=== PATIENT | female | born 1950 | race Caucasian/White ===

== ENCOUNTER 2018-06-07 20:32 | Observation (INO) | payer MEDICARE, OTHER ==
[~2018-06-07] VITALS: Ht 162.6 cm; Wt 89.7 kg
[~2018-06-07 20:32] MED LIST: CARV25 PO; CHOL10002; LANS15EC PO; Multivitamin1 EAC1 PO
[2018-06-07 22:44] LABS: BASOPHILS ABSOLUTE AUTO 0.03 K/mm3 (0.00-0.23); BASOPHILS PERCENT AUTO 0 % (0-2); EOSINOPHILS ABSOLUTE AUTO 0.08 K/mm3 (0.00-0.68); EOSINOPHILS PERCENT AUTO 1 % (0-6); Hematocrit 42.8 % (33.0-51.0); IMMATURE GRAN ABSOLUTE AUTO 0.02 K/mm3 (0.00-0.10); IMMATURE GRAN PERCENT AUTO 0 % (0-1); LYMPHOCYTES ABSOLUTE AUTO 1.23 K/mm3 (0.84-5.20); LYMPHOCYTES PERCENT AUTO 17 % (21-46); MONOCYTES ABSOLUTE AUTO 0.44 K/mm3 (0.16-1.47); MONOCYTES PERCENT AUTO 6 % (4-13); Mean Corpuscular HGB 31.3 pg (26.0-34.0); Mean Corpuscular HGB Conc 32.7 g/dL (31.5-36.5); Mean Corpuscular Volume 96 fL (80-100); Mean Platelet Volume 9.2 fL (9.1-12.4); NEUTROPHILS ABSOLUTE AUTO 5.46 K/mm3 (1.96-9.15); NEUTROPHILS PERCENT AUTO 75 % (41-73); Platelet Count 332 K/mm3 (150-400); RDW Coefficient Variation 12.9 % (11.7-14.2); RDW Standard Deviation 45.8 fL (35.1-46.3); Red Blood Cell Count 4.48 M/mm3 (3.80-5.20); White Blood Cell Count 7.26 K/mm3 (4.00-11.30)
[2018-06-07 22:48] LABS: Alanine Aminotransfer (ALT/SGP 26 U/L (12-78); Albumin, Blood 4.7 g/dL (3.4-5.0); Albumin/Globulin Ratio 1.3 (0.8-1.8); Alk Phos 73 U/L (50-136); Anion Gap 10 mmol/L (6-16); Aspartate Aminotrans (AST/SGOT 22 U/L (12-37); Bilirubin, Total 0.5 mg/dL (0.1-1.0); Blood Urea Nitrogen 13 mg/dL (8-24); Bun/Creatinine Ratio 17.8 (12.0-20.0); CO2, Blood 26 mmol/L (21-32); Calcium, Blood 9.3 mg/dL (8.5-10.1); Chloride, Blood 106 mmol/L (98-108); Creatinine, Blood 0.73 mg/dL (0.40-1.00); Globulin, Blood 3.5 g/dL (2.2-4.0); Glomerular Filtration Rate >60 (60-); Glucose, Blood 105 mg/dL (70-99); Potassium, Blood 3.5 mmol/L (3.5-5.5); Sodium, Blood 142 mmol/L (136-145); Total Protein, Blood 8.2 g/dL (6.4-8.2)
[2018-06-08] MEDS ORDERED: ESOM20 PO (00:07)
[2018-06-08] MEDS ORDERED: LOSA50 PO (00:07)
[2018-06-08] MEDS ORDERED: CLEM1.34 (00:07)
[2018-06-09 05:48] LABS: Mean Corpuscular HGB 30.7 pg (26.0-34.0); Mean Corpuscular HGB Conc 32.4 g/dL (31.5-36.5); Mean Corpuscular Volume 95 fL (80-100); Mean Platelet Volume 9.6 fL (9.1-12.4); Platelet Count 309 K/mm3 (150-400); RDW Coefficient Variation 13.3 % (11.7-14.2); RDW Standard Deviation 46.1 fL (35.1-46.3); Red Blood Cell Count 3.91 M/mm3 (3.80-5.20); White Blood Cell Count 8.48 K/mm3 (4.00-11.30)
[2018-06-09 06:09] LABS: Alanine Aminotransfer (ALT/SGP 24 U/L (12-78); Albumin, Blood 3.7 g/dL (3.4-5.0); Albumin/Globulin Ratio 1.2 (0.8-1.8); Alk Phos 58 U/L (50-136); Anion Gap 9 mmol/L (6-16); Aspartate Aminotrans (AST/SGOT 16 U/L (12-37); Bilirubin, Total 0.5 mg/dL (0.1-1.0); Blood Urea Nitrogen 21 mg/dL (8-24); Bun/Creatinine Ratio 23.3 (12.0-20.0); CO2, Blood 26 mmol/L (21-32); Calcium, Blood 8.4 mg/dL (8.5-10.1); Chloride, Blood 103 mmol/L (98-108); Globulin, Blood 3.1 g/dL (2.2-4.0); Glomerular Filtration Rate >60 (60-); Glucose, Blood 114 mg/dL (70-99); Potassium, Blood 3.3 mmol/L (3.5-5.5); Sodium, Blood 138 mmol/L (136-145); Total Protein, Blood 6.8 g/dL (6.4-8.2)
[2018-06-10] MEDS ORDERED: ATOR40TA PO (08:24)
[2018-06-10] MEDS ORDERED: AMLO5 PO (09:50)
[2018-06-10] MEDS ORDERED: BENZ100A PO (09:51)
[2018-06-10] MEDS ORDERED: Esgic Tablet1 EACH PO (09:52)
[2018-06-10] MEDS ORDERED: HYDCHL12.5 PO (09:52)
[2018-06-10] MEDS ORDERED: Micro-K10 MEQ PO (09:53)
== END 2018-06-10 13:21 | disposition home or self-care (01) ==
LOC: ER 20:32 → MEDS 20:33 → ENPENDDIS 06-10 10:00 → MEDS 06-10 13:21
PROVIDERS: Emergency Medicine; Internal Medicine
DX: G93.5 Compression of brain (principal); I16.0 Hypertensive urgency; K21.9 Gastro-esophageal reflux disease without esophagitis; E87.6 Hypokalemia; Z79.899 Other long term (current) drug therapy; Z88.0 Allergy status to penicillin
CPT/HCPCS: 36415; 70450; 70553; 71045; 80053; 85025; 85027; 85379; 85651; 90686; 96361; 96372; 96374; 96375; 96376; 99285-25; A9577; G0008; G0378; J0360; J1100; J1200; J1650; J1885; J2060; J2405; J2550; J2765; J3010; J7030

== ENCOUNTER 2018-10-08 06:49 | Day surgery (SDC) | payer MEDICARE, OTHER ==
[~2018-10-08] VITALS: Ht 182.9 cm; Wt 89.5 kg
[~2018-10-08 06:49] MED LIST changes: +AMLO5 PO; +ATOR40TA PO; +BENZ100A PO; +CLEM1.34; +ESOM20 PO; +Esgic Tablet1 EACH PO; +HYDCHL12.5 PO; +LOSA50 PO; +Micro-K10 MEQ PO
--- NOTE | 2018-10-08 09:40 | NUR ---
MANUAL HOLD PT'S RIGHT HAND BECAME PURPLE/BLUE COLOR. ROMY Mitchell RTR TOOK A 4CC'S AIR OUT OF THE TR BAND TO IMPROVE COLOR. THE PT'S HAND REMAINED TENDER AND PURPLE/BLUE. TR BAND HAS BEEN RMOVED AND MANUAL PRESSURE IS BEING HELD BY KONRAD Haro RN.
--- NOTE | 2018-10-08 09:55 | NUR ---
RADIAL SITE MANUAL HOLD WAS PERFORMED BY KONRAD Haro RN. FOR [address] IN [address] WITH 5CC'S OF AIR OVER KASI PATCH AND COBAN. WILL CONTINUE TO MONITOR.
--- NOTE | 2018-10-08 12:16 | NUR ---
Discharge PT REMAINED A&OX3 DURING RECOVERY AND DENIED ANY PAIN. PRESSURE DRESSING APPLIED TO R RADIAL SITE FOR EXTRA PRECAUSTION OF BLEEDING. R RADIAL SITE REMAINS CDI-NO HEMATOMA NOTED AT THIS TIME. DISCHARGE PAPERWORK GONE OVER WITH PT AND . PT AND VERBALLY STATED THE UNDERSTANDING OF THE DISCHARGE PAPERWORK AND PRESSURE DRESSING EDUCATION GIVEN. IV DC'D WITH CANULA IN TACT. PT WHEELED OUT WITH PERSONAL BELONGINGS VIA WHEEL CHAIR BY [employer].
== END 2018-10-08 12:15 | disposition home or self-care (01) ==
LOC: MHTC 06:49
DX: I25.10 Atherosclerotic heart disease of native coronary artery without angina pectoris (principal); I44.1 Atrioventricular block, second degree; I10 Essential (primary) hypertension; Z87.891 Personal history of nicotine dependence; Z82.49 Family history of ischemic heart disease and other diseases of the circulatory system; Z79.899 Other long term (current) drug therapy; E66.9 Obesity, unspecified; Z68.35 Body mass index [BMI] 35.0-35.9, adult
CPT/HCPCS: 85347; 93454; 93571; 99152; 99153; C1769; C1887; C1894; J1644; J2250; J3010; J7030; Q9967

== ENCOUNTER 2018-11-21 09:24 | Day surgery (SDC) | payer MEDICARE, OTHER ==
[~2018-11-21] VITALS: Ht 157.5 cm; Wt 89.0 kg
--- NOTE | 2018-11-21 17:08 | NUR ---
SHIFT SUMMARY PT ALERT AND ORIENTED. VS STABLE. PT ARRIVED TO UNIT AFTER PACEMAKER PLACEMENT. LEFT CHEST WALL SURGICAL SITE COVERED WITH DRESSING IS C/D/I. SHOULDER IMMOBILIZER IN PLACE. PT EDUCATED ABOUT RESTRICTIONS. HUSBAMD AT BEDSIDE. NO OTHER CHANGES SINCE INITIAL ASSESSMENT. WILL CONTINUE TO MONITOR AND REPORT TO ONCOMING RN.
--- NOTE | 2018-11-21 19:30 | NUR ---
PM NOTE. ASSUMED CARE OF PT APROX 1900, PT IS A&O AND SBA IN THE ROOM. PT IS S/P PACER PLACEMENT TODAY. PT DENIES ANY CHEST PAIN/PRESSURE, SOB OR N/V. PT C/O OF "SLIGHT SORENESS" TO THE SURGICAL SITE. PT IS CURRENLTY 100% PACED PER RETURNED TELEPHONE EQUIPMENT APPRAISER. PT'S BP 133/66, TRACE EDEMA NOTED TO THE PT'S BLLE. PT'S L/S CLEAR T/O. PT IS ON RA W/STATS AT 98%. BT PRESENT AND HYPOACTIVE, ABD IS SOFT AND NONTENDER TO PALP. PACER SITE IS C/D/I, SLIGHT BRUISING AND SWELLING IS NOTED AROUND THE AREA, NO SIGNS/SYMPTOMS OF A HEMATOMA OR OTHER BLEEDING. IS AT THE BEDSIDE AND IS PLANNING ON STAYING T/O THE NIGHT. A RECLINER WAS OBTAINED FOR HIM ALONG WITH BLANKETS AND A PILLOW FOR COMFORT. CALL LIGHT IN REACH, BED IS LOCKED AND LOW WILL CONTINUE TO MONITOR.
--- NOTE | 2018-11-22 06:03 | NUR ---
SHIFT SUMMARY. NO ACUTE CHANGES NOTED THIS SHIFT. PT'S VS HAVE BEEN STABLE T/O SHIFT. PT DENIES ANY CHEST PAIN/PRESSURE, N/V OR SOB. NO EVENTS HAVE BEEN NOTED ON TELE. PT HAS BEEN 100% PACED PER SURVEY DIRECTOR. PT HAS BEEN UP TO THE BATHROOM TO VOID W/SBA. PACER SITE IS C/D/I, SLIGHT BRUISING AND SWELLING IS STILL NOTED BUT NOT CHANGED SINCE ASSESSMENT AT THE START OF THIS SHIFT. CALL LIGHT IN REACH, BED IS LOCKED AND LOW WILL CONTINUE TO MONITOR UNTIL REPORT IS GIVEN TO ONCOMING RN.
--- NOTE | 2018-11-22 08:36 | NUR ---
AM NOTE. WILL CONTINUE CARE OF PT UNTIL 1100 TODAY, PT IS S/P PACER PLACEMENT AND HOPING TO D/C HOME TODAY. PT HAD CHEST XRAY THIS AM TO CONFRIM PACER PLACEMENT. PT DENIES ANY CHEST PAIN/PRESSURE, N/V OR SOB. PT STATES SHE DOES NOT HAVE "PALPITATIONS" ANY MORE AND IS STARTING TO FEEL MUCH BETTER. TELE INTACT, 100% PACED, NO CARDIAC EVENTS PER CLINICAL UNIT EDUCATOR. PT'S BP 145/65, TRACE EDEMA NOTED ON ASSESSMENT TO THE PT'S BLLE. L/S CLEAR T/O. BT PRESENT AND HYPOACTIVE, ABD IS SOFT AND NONTENDER TO PALP. PT C/O OF NAUSEA THIS AM BUT STATED IT HAS IMPROVED, PT WAS ABLE TO EAT 95% OF HER BREAKFAST TODAY. IS AT THE BEDSIDE. CALL LIGHT IN REACH, BED IS LOCKED AND LOW WILL CONTINUE TO MONITOR.
== END 2018-11-22 11:37 | disposition home or self-care (01) ==
LOC: MHTC 09:24 → PCU 11:34 → MHTC 11-22 11:37
DX: I44.2 Atrioventricular block, complete (principal); I10 Essential (primary) hypertension; M19.90 Unspecified osteoarthritis, unspecified site; E66.9 Obesity, unspecified; Z87.891 Personal history of nicotine dependence; Z88.0 Allergy status to penicillin; Z79.899 Other long term (current) drug therapy
CPT/HCPCS: 33208; 71045; 71046; 99152; 99153; C1785; C1898; J1644; J2250; J3010; J3370; J7030; J7040

== ENCOUNTER 2021-08-09 12:05 | Day surgery (SDC) | payer MEDICARE, OTHER ==
[~2021-08-09] VITALS: Ht 160 cm; Wt 76.2 kg
[~2021-08-09 12:05] MED LIST changes: +ACET500 PO; +ELIQUIS5 M2 PO; -HYDCHL12.5 PO; +HYDCHL25 PO; +METO25ER PO; -Micro-K10 MEQ PO; +POTCHL20ER PO
--- NOTE | 2021-08-09 13:27 | NUR ---
Ambulatory in Day Surgery History, Chart, Medications and Allergies reviewed before start of procedure.Patient confirms NPO status and agrees with scheduled surgery. Lungs clear T/O to Auscultation.
--- NOTE | 2021-08-09 14:24 | NUR ---
08/09/21 1424 SAY ZAIDI History, Chart, Medications and Allergies reviewed before start of procedure. Patient confirms NPO status and agrees with scheduled surgery. 3-LEAD EKG REVIEWED WITH PHYSICIAN PRIOR TO START OF PROCEDURE. MONITOR INTACT WITH CONTINUOUS PULSE OXIMETRY AND INTERMITTENT BP. PATIENT DETERMINED TO BE ASA APPROPRIATE FOR PROPOFOL SEDATION PRIOR TO START OF PROCEDURE BY DR. NUNEZ. 02 VIA POM.
--- NOTE | 2021-08-09 15:24 | NUR ---
Patient up to Ambulate independently. Gait steady. Discharge instructions reviewed with patient. Patient verbalizes understanding. Copy given to patient to take home. Patient States Post-Procedure ride home has been arranged. Discharged via wheelchair to private car for ride home.
== END 2021-08-09 15:13 | disposition home or self-care (01) ==
LOC: ORSCMMR 12:05 → ORD 14:45 → ORSCMMR 15:13
PROVIDERS: Student in an Organized Health Care Education/Training Program
PROC: 0DB98ZX Excision of Duodenum, Via Natural or Artificial Opening Endoscopic, Diagnostic (ICD-10-PCS; principal; 2021-08-09 13:30)
PROC: 0DB48ZX Excision of Esophagogastric Junction, Via Natural or Artificial Opening Endoscopic, Diagnostic (ICD-10-PCS; principal; 2021-08-09 13:30)
PROC: 0DB68ZX Excision of Stomach, Via Natural or Artificial Opening Endoscopic, Diagnostic (ICD-10-PCS; principal; 2021-08-09 13:30)
DX: K21.9 Gastro-esophageal reflux disease without esophagitis (principal); I10 Essential (primary) hypertension; K22.2 Esophageal obstruction; K29.70 Gastritis, unspecified, without bleeding; K44.9 Diaphragmatic hernia without obstruction or gangrene; Z79.899 Other long term (current) drug therapy
CPT/HCPCS: 88305; 88342; J2704; J7120

== ENCOUNTER → 2024-06-23 | Outpatient (CLI) | payer MEDICARE, OTHER ==
[2024-06-23 19:58] LABS: BASOPHILS ABSOLUTE AUTO 0.05 K/mm3 (0.00-0.23); BASOPHILS PERCENT AUTO 1 % (0-2); EOSINOPHILS ABSOLUTE AUTO 0.11 K/mm3 (0.00-0.68); EOSINOPHILS PERCENT AUTO 1 % (0-6); Hematocrit 39.5 % (33.0-51.0); Hemoglobin 13.2 g/dL (11.5-16.0); IMMATURE GRAN ABSOLUTE AUTO 0.03 K/mm3 (0.00-0.10); IMMATURE GRAN PERCENT AUTO 0 % (0-1); LYMPHOCYTES ABSOLUTE AUTO 1.82 K/mm3 (0.84-5.20); LYMPHOCYTES PERCENT AUTO 23 % (21-46); MONOCYTES ABSOLUTE AUTO 0.46 K/mm3 (0.16-1.47); MONOCYTES PERCENT AUTO 6 % (4-13); Mean Corpuscular HGB 31.5 pg (26.0-34.0); Mean Corpuscular HGB Conc 33.4 g/dL (31.5-36.5); Mean Corpuscular Volume 94 fL (80-100); NEUTROPHILS ABSOLUTE AUTO 5.34 K/mm3 (1.96-9.15); NEUTROPHILS PERCENT AUTO 68 % (41-73); Platelet Count 351 K/mm3 (150-400); RDW Coefficient Variation 12.9 % (11.7-14.2); RDW Standard Deviation 44.5 fL (35.1-46.3); Red Blood Cell Count 4.19 M/mm3 (3.80-5.20); White Blood Cell Count 7.81 K/mm3 (4.00-11.30)
[2024-06-23 22:18] LABS: Alanine Aminotransfer (ALT/SGP 29 U/L (12-78); Albumin, Blood 3.8 g/dL (3.4-5.0); Albumin/Globulin Ratio 1.1 (0.8-1.8); Alk Phos 84 U/L (50-136); Anion Gap 15 mmol/L (3-11); Aspartate Aminotrans (AST/SGOT 30 U/L (12-37); Bilirubin, Total 0.3 mg/dL (0.1-1.0); Blood Urea Nitrogen 17 mg/dL (8-24); CHOL/HDL RATIO 2.2; CO2, Blood 25 mmol/L (21-32); Chloride, Blood 104 mmol/L (98-108); Cholesterol 119 mg/dL (50-200); Globulin, Blood 3.5 g/dL (2.2-4.0); Glucose, Blood 117 mg/dL (70-99); HDL Cholesterol 54 mg/dL (>39); LDL/HDL RATIO 0.8; Low Density Lipoprotein Chol 43 mg/dL (0-110); Potassium, Blood 3.8 mmol/L (3.5-5.5); Sodium, Blood 140 mmol/L (136-145); Total Protein, Blood 7.3 g/dL (6.4-8.2); Triglycerides 108 mg/dL (30-160); Very Low Density Lipoprot Chol 21 mg/dL (6-32)
[2024-06-23 22:25] LABS: Bun/Creatinine Ratio 24.3 (12.0-20.0); Glomerular Filtration Rate 91 (60-); Thyroid Stimulating Hormone 0.816 uIU/mL (0.360-4.800)
== END ==
LOC: LAB SHORT 18:44 → LAB 18:44
PROVIDERS: Family Medicine
DX: Z79.899 Other long term (current) drug therapy (principal)
CPT/HCPCS: 80053; 80061; 82306; 83036; 84443; 85025

== ENCOUNTER → 2025-01-13 | Outpatient (CLI) | payer MEDICARE ==
[2025-01-13 17:05] LABS: Calcium, Blood 9.3 mg/dL (8.5-10.1); Creatinine, Blood 0.57 mg/dL (0.40-1.00); Magnesium, Blood 2.3 mg/dL (1.6-2.4)
== END ==
LOC: LAB SHORT 10:40 → LAB 10:40
PROVIDERS: Family Medicine
DX: I10 Essential (primary) hypertension (principal)
CPT/HCPCS: 80048; 83735

== ENCOUNTER → 2025-07-13 | Outpatient (CLI) | payer MEDICARE ==
[2025-07-13 16:25] LABS: BASOPHILS ABSOLUTE AUTO 0.05 K/mm3 (0.00-0.23); BASOPHILS PERCENT AUTO 1 % (0-2); EOSINOPHILS ABSOLUTE AUTO 0.18 K/mm3 (0.00-0.68); EOSINOPHILS PERCENT AUTO 2 % (0-6); Hematocrit 38.5 % (33.0-51.0); Hemoglobin 12.8 g/dL (11.5-16.0); IMMATURE GRAN ABSOLUTE AUTO 0.01 K/mm3 (0.00-0.10); IMMATURE GRAN PERCENT AUTO 0 % (0-1); LYMPHOCYTES ABSOLUTE AUTO 2.34 K/mm3 (0.84-5.20); LYMPHOCYTES PERCENT AUTO 32 % (21-46); MONOCYTES ABSOLUTE AUTO 0.56 K/mm3 (0.16-1.47); MONOCYTES PERCENT AUTO 8 % (4-13); Mean Corpuscular HGB Conc 33.2 g/dL (31.5-36.5); Mean Corpuscular Volume 96 fL (80-100); NEUTROPHILS ABSOLUTE AUTO 4.21 K/mm3 (1.96-9.15); NEUTROPHILS PERCENT AUTO 57 % (41-73); NRBC ABSOLUTE 0.00 K/mm3 (0.00-0.02); NRBC Auto 0.0 /100 WBC (0.0-0.2); Platelet Count 260 K/mm3 (150-400); RDW Coefficient Variation 12.4 % (11.7-14.2); RDW Standard Deviation 44.3 fL (35.1-46.3)
[2025-07-13 16:56] LABS: Alanine Aminotransfer (ALT/SGP 31 U/L (12-78); Albumin, Blood 4.1 g/dL (3.4-5.0); Albumin/Globulin Ratio 1.2 (0.8-1.8); Anion Gap 7 mmol/L (3-11); Aspartate Aminotrans (AST/SGOT 26 U/L (12-37); Bilirubin, Total 0.4 mg/dL (0.1-1.0); Blood Urea Nitrogen 18 mg/dL (8-24); CHOL/HDL RATIO 1.8; CO2, Blood 27 mmol/L (21-32); Calcium, Blood 9.2 mg/dL (8.5-10.1); Chloride, Blood 104 mmol/L (98-108); Cholesterol 112 mg/dL (50-200); Creatinine, Blood 0.58 mg/dL (0.40-1.00); Globulin, Blood 3.3 g/dL (2.2-4.0); Glucose, Blood 107 mg/dL (70-99); HDL Cholesterol 64 mg/dL (>39); LDL/HDL RATIO 0.5; Low Density Lipoprotein Chol 31 mg/dL (0-110); Potassium, Blood 3.4 mmol/L (3.5-5.5); Sodium, Blood 135 mmol/L (136-145); Thyroid Stimulating Hormone 2.120 uIU/mL (0.360-4.800); Total Protein, Blood 7.4 g/dL (6.4-8.2); Triglycerides 85 mg/dL (30-160); Very Low Density Lipoprot Chol 17 mg/dL (6-32)
== END ==
LOC: LAB 14:55 → LAB SHORT 14:55
PROVIDERS: Family Medicine
DX: Z79.899 Other long term (current) drug therapy (principal)
CPT/HCPCS: 80053; 80061; 82306; 83036; 84443; 85025